=== PATIENT | female | born 1935 | race Caucasian/White ===

== ENCOUNTER 2023-07-31 07:16 | Day surgery (SDC) | payer OTHER ==
[~2023-07-31] VITALS: Ht 160 cm; Wt 95.3 kg
[~2023-07-31 07:16] MED LIST: BSS IRR 500ML/OMIDRIA 4ML IRR BAG (OR ONLY) As Ordered ONE; CEFUROXIME 1MG/0.1ML INTRACAMERAL INJ As Ordered ONE; CYCLOPENTOLATE 1% OPHTH SOLN 2ML BTL OD SCH; GABA-284 PO; LEXA5TAB13 PO; LIDOCAINE 1% SDV 5ML VIAL As Ordered ONE; MELO15TA28 PO; OFLOXACIN 0.3 % (OCUFLOX) OPTH SOL 5ML OD SCH; PHENYLEPHRINE 2.5% OPHTH SOL 2ML OD SCH; PROPARACAINE 0.5% OPHTH SOL 15ML OD ONE; TROPICAMIDE 1% OPHTH SOLN 15ML OD SCH
[2023-07-31] MEDS ORDERED: MIDAZOLAM INJ 2MG/2ML VIAL As Ordered ONE (08:07)
[2023-07-31] MEDS ORDERED: fentaNYL 100 MCG/2 ML INJECTION As Ordered ONE (08:07)
[2023-07-31 08:56] VITALS: BP 176/83; TEMP 97; O2SAT 96
== END 2023-07-31 09:17 | disposition home or self-care (01) ==
LOC: M SDC 07:16
PROVIDERS: ATTEND Ophthalmology
DX: H25.11 Age-related nuclear cataract, right eye (principal); F32.A Depression, unspecified; Z86.73 Personal history of transient ischemic attack (TIA), and cerebral infarction without residual deficits; Z79.899 Other long term (current) drug therapy; Z88.2 Allergy status to sulfonamides
CPT/HCPCS: 66984; J0697; J1097; J2250; J3010; V2632

== ENCOUNTER 2024-05-26 11:04 | Day surgery (SDC) | payer OTHER ==
[~2024-05-26] VITALS: Ht 160 cm; Wt 91.0 kg
[~2024-05-26 11:04] MED LIST changes: -BSS IRR 500ML/OMIDRIA 4ML IRR BAG (OR ONLY) As Ordered ONE; -CEFUROXIME 1MG/0.1ML INTRACAMERAL INJ As Ordered ONE; -CYCLOPENTOLATE 1% OPHTH SOLN 2ML BTL OD SCH; -LIDOCAINE 1% SDV 5ML VIAL As Ordered ONE; +LR 1,000 ML IV SCH; -OFLOXACIN 0.3 % (OCUFLOX) OPTH SOL 5ML OD SCH; -PHENYLEPHRINE 2.5% OPHTH SOL 2ML OD SCH; -PROPARACAINE 0.5% OPHTH SOL 15ML OD ONE; -TROPICAMIDE 1% OPHTH SOLN 15ML OD SCH; +fentaNYL 100 MCG/2 ML INJECTION As Ordered ONE
[2024-05-26] MEDS ORDERED: ALEN10TA5 PO (13:32)
[2024-05-26] MEDS ORDERED: CALC600C3 PO (13:32)
[2024-05-26] MEDS ORDERED: MULT-90 PO (13:32)
[2024-05-26] MEDS ORDERED: TURM500T PO (13:32)
[2024-05-26] MEDS ORDERED: B-122500 PO (13:32)
[2024-05-26] MEDS ORDERED: MULT1TAB16 PO (13:32)
[2024-05-26] MEDS ORDERED: NOXI1TAB PO (13:32)
[2024-05-26] MEDS: FLURBIPROFEN 0.03% OPHTH SOLN 2.5 ML OS SCH (13:35)
[2024-05-26] MEDS: PHENYLEPHRINE 2.5% OPHTH SOL 2ML OS SCH (13:35)
[2024-05-26] MEDS: TETRACAINE 0.5% OPHTH SOLN 4ML OS SCH (13:35)
[2024-05-26] MEDS: ATROPINE SULFATE 1% OPHTH SOLN 2ML BTL OS SCH (13:35)
[2024-05-26] MEDS: CEFUROXIME 1MG/0.1ML INTRACAMERAL INJ As Ordered ONE (14:58)
[2024-05-26] MEDS: LIDOCAINE 1% SDV 5ML VIAL As Ordered ONE (14:58)
[2024-05-26 15:18] VITALS: BP 141/66; TEMP 96.9; O2SAT 99
== END 2024-05-26 15:36 | disposition home or self-care (01) ==
LOC: M SDC 11:04
PROVIDERS: ATTEND Ophthalmology
DX: H25.12 Age-related nuclear cataract, left eye (principal); Z88.2 Allergy status to sulfonamides
CPT/HCPCS: 66984; J0697; J3010; V2632